=== PATIENT | female | born 1935 | race Hispanic/Latino ===

== ENCOUNTER 2017-02-15 09:22 | Inpatient (IN) | payer MEDICARE, OTHER ==
[2017-02-15 09:33] VITALS: BMI 17.1
[2017-02-15] MEDS ORDERED: LORazepam Half Tablet 0.25 MG PO ONE (09:49)
--- NOTE | 2017-02-15 09:57 | ED PDOC ---
Arrival/HPI - General Chief Complaint: Weakness/Neurological Deficit Time Seen by Provider: 02/15/17 09:27 Historian: Patient, Family - History of Present Illness Narrative History of Present Illness (Text): 02/15/17 09:40 A 81 year old female, whose past medical history includes anxiety, depression, UTI, paroxysymal atrial fibrillation, hypothythriodism, weakness, dizziness, gait abnormality, presents to the emergency department via EMS called by the patient's son for tremors, abdominal pain, constipation, vaginal pain, and hip pain, which began months ago. The patient and son both note that this has been going on for months now and the patient finally became "fed up" with her symptoms and decided she needed to seek medical attention. She admits to being noncompliant with medications and not following up with her primary doctor for months. She also notes that for the past couple of months she has been primary bed ridden due to her current status. The patient denies any fever, nausea, vomiting, chest pain, shortness of breath, or any other complaints at this time. Time/Duration: > month Symptom Onset: Gradual Symptom Course: Unchanged Activities at Onset: Rest Context: Home Past Medical History - Provider Review Nursing Documentation Reviewed: Yes - Infectious Disease Hx of Infectious Diseases: None - Cardiac Hx Hypertension: Yes - Pulmonary Hx Respiratory Disorders: No Hx Pneumonia: Yes - Neurological Hx Dementia: Yes Hx Dizziness: Yes - HEENT Hx HEENT Disorder: Yes (eyeglasses) - Renal Hx Renal Disorder: No - Endocrine/Metabolic Hx Hypothyroidism: Yes - Hematological/Oncological Hx Blood Disorders: No - Integumentary Hx Dermatological Disorder: No - Musculoskeletal/Rheumatological Hx Arthritis: Yes - Gastrointestinal Hx Gastrointestinal Disorders: No - Genitourinary/Gynecological Hx Reproductive Disorders: No - Psychiatric Hx Anxiety: Yes Hx Depression: Yes Hx Substance Use: No - Surgical History Hx Orthopedic Surgery: Yes (left wrist hardware in and out) Other/Comment: ORTHO SURGERY FROM PREVISOU TRIAGE - Anesthesia Hx Anesthesia: Yes Hx Anesthesia Reactions: No Hx Malignant Hyperthermia: No Family/Social History - Physician Review Nursing Documentation Reviewed: Yes Family/Social History: Other (nc) Smoking Status: Never Smoked Hx Alcohol Use: No Hx Substance Use: No Allergies/Home Meds Allergies/Adverse Reactions: Allergies No Known Allergies Allergy (Verified 04/28/16 13:34) Home Medications: Home Meds Medication Instructions Recorded Confirmed No Known Home Med 02/15/17 02/15/17 Review of Systems - Physician Review All systems were reviewed & negative as marked: Yes - Review of Systems Constitutional: absent: Fevers Cardiovascular: absent: Chest Pain Gastrointestinal: Abdominal Pain, Constipation. absent: Nausea, Vomiting Genitourinary Female: Other (vaginal pain ) Neurological: Other (tremors) Physical Exam Vital Signs Reviewed: Yes Vital Signs Temp Pulse Resp BP Pulse Ox 02/15/17 15:18 59 L 18 148/69 100 02/15/17 13:00 57 L 18 152/71 H 100 02/15/17 11:12 60 18 155/79 H 100 02/15/17 09:33 97.7 F 77 18 157/88 H 97 Temperature: Afebrile Blood Pressure: Hypertensive Pulse: Regular Respiratory Rate: Normal Appearance: Positive for: Well-Appearing, Non-Toxic, Comfortable Pain Distress: None Mental Status: Positive for: Alert and Oriented X 3 - Systems Exam Head: Present: Atraumatic, Normocephalic Pupils: Present: PERRL Mouth: Present: Moist Mucous Membranes Neck: Present: Normal Range of Motion Respiratory/Chest: Present: Clear to Auscultation, Good Air Exchange. No: Respiratory Distress, Accessory Muscle Use Cardiovascular: Present: Regular Rate and Rhythm. No: Murmurs Abdomen: Present: Tenderness (diffuse non focal), Normal Bowel Sounds. No: Distention, Peritoneal Signs Neurological: Present: GCS=15, Other (resting tremor right arm; no focal deficits) Skin: Present: Warm, Dry, Normal Color. No: Rashes Psychiatric: Present: Alert, Oriented x 3 Medical Decision Making ED Course and Treatment: Progress Notes: EKG: Ordered, reviewed, and independently interpreted the EKG. Rate : 76 BPM Rhythm : SR Interpretation : 1st Degree AV block. No STEMI. Baseline artifact obscures several leads due to the patients tremor. Comparison : No previous EKG for comparison. 02/15/17 12:30 pt c/o rectal pain. on exam there is impaction with stool- I manually disimpacted and pt reported improvement after. enema given as well. she reported her abdominal pain resolved. she refused CT abd/pelvis and CT head. - Lab Interpretations Microbiology Results: Microbiology Results 02/15/17 11:15 Urine Urine Culture - Final No Growth (<1,000 CFU/ML) Lab Results: 02/15/17 10:30 02/15/17 10:30 Lab Results 02/15/17 11:15: Urine Color Yellow, Urine Appearance Clear, Urine pH 6.5, Ur Specific [place] 1.020, Urine Protein 30 H, Urine Glucose (UA) Negative, Urine Ketones Negative, Urine Blood Small H, Urine Nitrate Negative, Urine Bilirubin Negative, Urine Urobilinogen 0.2, Ur Leukocyte Esterase Trace H, Urine RBC 1 - 3 , Urine WBC 0 - 2, Ur Epithelial Cells 0 - 2, Urine Bacteria Few 02/15/17 10:30: TSH 3rd Generation 124.00 H 02/15/17 10:30: Sodium 141, Chloride 103, Potassium 4.0, Carbon Dioxide 29, Anion Gap 13, BUN 21, Creatinine 0.7, Est GFR ( Amer) > 60, Est GFR (Non- Af Amer) > 60, Random Glucose 86, Calcium 9.9, Total Bilirubin 0.9, AST 52 H, ALT 55, Alkaline Phosphatase 66, Troponin I < 0.01, Total Protein 7.4, Albumin 4.5, Globulin 2.9, Albumin/Globulin Ratio 1.6, Lipase 166 02/15/17 10:30: pO2 49, VBG pH 7.39, VBG pCO2 53.0, VBG HCO3 32.1 H, VBG Total CO2 33.7 H, VBG O2 Sat (Calc) 89.1 H, VBG Base Excess 5.7 H, VBG Potassium 3.9, Sodium 142.0, Chloride 106.0, Glucose 86, Lactate 1.0, FiO2 21.0, Venous Blood Potassium 3.9 02/15/17 10:30: WBC 5.6, RBC 3.91, Hgb 12.1, Hct 35.5 L, MCV 90.8, MCH 30.9, MCHC 34.1, RDW 12.9, Plt Count 192, MPV 9.9, Gran % 68.4 H, Lymph % (Auto) 21.6 L, [place]ake % (Auto) 4.7, Eos % (Auto) 4.9, Baso % (Auto) 0.4, Gran # 3.81, Lymph # 1.2, Leake # 0.3, Eos # 0.3, Baso # 0.02 - RAD Interpretation Radiology Orders: 02/15/17 09:50 CHEST PORTABLE [RAD] Stat - Medication Orders Current Medication Orders: Docusate Sodium (Colace) 100 mg PO BID PEDRO LUIS Last Admin: 02/16/17 10:36 Dose: 100 mg Last Bowel Movement Document 02/16/17 10:36 MAD (Rec: 02/16/17 10:37 [id number]) Last Bowel Movement Last Bowel Movement 02/15/17 Heparin Sodium (Porcine) (Heparin) 5,000 units SC Q12 PEDRO LUIS PRN Reason: Protocol Last Admin: 02/16/17 10:36 Dose: 5,000 units Subcutaneous Administrations Document 02/16/17 10:36 MAD (Rec: 02/16/17 10:36 [id number]) Injection Site MAR Injection Site Right Abdomen Charges for Administration # of Subcutaneous Administrations 1 Sodium Chloride (Sodium Chloride 0.9%) 1,000 mls @ 100 mls/hr IV .Q10H PEDRO LUIS Last Admin: 02/16/17 06:29 Dose: 100 mls/hr eMAR Start Stop Document 02/16/17 06:29 [facility] (Rec: 02/16/17 06:30 [id number] Intravenous Solution Start Date 02/16/17 Start Time 06:29 Levothyroxine Sodium (Synthroid) 100 mcg IVP DAILY PEDRO LUIS Stop: 02/18/17 11:00 Last Admin: 02/16/17 11:13 Dose: 100 mcg IVP Administration Document 02/16/17 11:13 [facility]AD (Rec: 02/16/17 11:[id number] Charges for Administration # of IVP Administrations 1 Lorazepam (Ativan) 1 mg IM Q6H PRN; Protocol PRN Reason: Anxiety Last Admin: 02/16/17 10:37 Dose: 1 mg IM Administration Charges Document 02/16/17 10:37 MAD (Rec: 02/16/17 10:38 [id number]) Injection Site MAR Injection Site Right Abdomen Charges for Administration # of IM Administrations 1 Behavioural Document 02/16/17 10:37 MAD (Rec: 02/16/17 10:38 [id number]) Maintenance Maintenance Dose No Nonmedicinal Nonmedicinal Interventions Redirect Therapeutic Communication Comment Hyperthyroidism Behavior Behavior for Medication: Anxiety Re-Assess: Reassess Psych Meds Document 02/16/17 11:07 MAD (Rec: 10/02/17 11:[id number] Reassess Psych Med Effective Pantoprazole Sodium (Protonix Ec Tab) 40 mg PO 0600 PEDRO LUIS Last Admin: 02/16/17 06:25 Dose: 40 mg Discontinued Medications Heparin Sodium (Porcine) (Heparin) 5,000 units SC STAT STA PRN Reason: Protocol Stop: 02/15/17 16:04 Last Admin: 02/15/17 20:08 Dose: 5,000 units Subcutaneous Administrations Document 02/15/17 20:08 LMN (Rec: 02/15/17 20:08 [id number] Injection Site MAR Injection Site Right Arm Charges for Administration # of Subcutaneous Administrations 1 Levothyroxine Sodium (Synthroid) 200 mcg IVP STAT STA Stop: 02/15/17 19:29 Last Admin: 02/15/17 21:51 Dose: 200 mcg IVP Administration Document 02/15/17 21:51 [facility] (Rec: 02/15/17 21:54 [id number] Charges for Administration # of IVP Administrations 1 Lorazepam (Ativan) 0.25 mg PO ONCE ONE PRN Reason: Protocol Stop: 02/15/17 09:50 Lorazepam (Ativan) 0.25 mg PO ONCE ONE Stop: 02/15/17 10:01 Last Admin: 02/15/17 10:30 Dose: 0.25 mg Pantoprazole Sodium (Protonix Inj) 40 mg IVP DAILY PEDRO LUIS Sodium Phosphate (Fleet Enema) 135 ml RC STAT STA Stop: 02/15/17 12:33 Last Admin: 02/15/17 13:03 Dose: 135 ml - Scribe Statement The provider has reviewed the documentation as recorded by the Simon Hlil Provider Scribe Attestation: All medical record entries made by the Scribnoa were at my direction and personally dictated by me. I have reviewed the chart and agree that the record accurately reflects my personal performance of the history, physical exam, medical decision making, and the department course for this patient. I have also personally directed, reviewed, and agree with the discharge instructions and disposition. Disposition/Present on Arrival - Present on Arrival Any Indicators Present on Arrival: No History of DVT/PE: No History of Uncontrolled Diabetes: No Urinary Catheter: No History of Decub. Ulcer: No History Surgical Site Infection Following: None - Disposition Have Diagnosis and Disposition been Completed?: Yes Diagnosis: Hypothyroidism Disposition: HOSPITALIZED Disposition Time: 14:06 Patient Problems: Current Active Problems Problem Status Onset Hypothyroidism Acute Condition: STABLE
[2017-02-15] MEDS: Sodium Chloride 0.9% 1,000 ML IV SCH ×2 (10:30→22:15)
[2017-02-15 10:56] LABS: VENOUS BLOOD GAS BASE EXCESS 5.7 mmol/L (0.0-2.0); VENOUS BLOOD PH 7.39 (7.32-7.43)
[2017-02-15 11:04] LABS: BASO # 0.02 K/mm3 (0.0-2.0); BASO % 0.4 % (0.0-3.0); EOS # 0.3 (0.0-0.7); EOS % 4.9 % (1.5-5.0); GRAN # 3.81 (1.4-6.5); GRAN % 68.4 % (50.0-68.0); HEMATOCRIT 35.5 % (36.0-48.0); LYMPH # 1.2 (1.2-3.4); LYMPH % 21.6 % (22.0-35.0); MEAN CELL VOLUME 90.8 fl (80.0-105.0); MEAN CORPUSCULAR HEMOGLOBIN 30.9 pg (25.0-35.0); MEAN CORPUSCULAR HGB CONC 34.1 g/dl (31.0-37.0); MEAN PLATELET VOLUME 9.9 fl (7.0-11.0); MONO # 0.3 (0.1-0.6); MONO % 4.7 % (1.0-6.0); RED CELL DISTRIBUTION WIDTH 12.9 % (11.5-14.5); WHITE BLOOD COUNT 5.6 10^3/ul (4.5-11.0)
[2017-02-15 11:06] LABS: ALB/GLOB RATIO 1.6 (1.1-1.8); ALKALINE PHOSPHATASE 66 U/L (38-126); ALT/SGPT 55 U/L (7-56); AST/SGOT 52 U/L (14-36); BILIRUBIN,TOTAL 0.9 mg/dL (0.2-1.3); BLOOD UREA NITROGEN 21 mg/dL (7-21); CALCIUM 9.9 mg/dL (8.4-10.5); CARBON DIOXIDE 29 mmol/L (21-33); CHLORIDE 103 mmol/L (98-107); GFR AFRICAN-AMERICAN > 60; GLUCOSE,RANDOM 86 mg/dL (70-110); LIPASE 166 U/L (23-300); SODIUM 141 mmol/L (132-148); TOTAL PROTEIN 7.4 g/dL (5.8-8.3)
[2017-02-15 11:27] LABS: TROPONIN I < 0.01 ng/mL
[2017-02-15 11:34] LABS: PH,URINE 6.5 (4.7-8.0); URINE BILIRUBIN NEGATIVE (NEGATIVE); URINE BLOOD SMALL (NEGATIVE); URINE GLUCOSE (UA) NEGATIVE (NEGATIVE); URINE KETONE NEGATIVE (NEGATIVE); URINE LEUKOCYTE ESTERASE TRACE Leu/uL (NEGATIVE); URINE PROTEIN 30 mg/dL (<30 mg/dL); URINE UROBILINOGEN 0.2 E.U./dL (<1 E.U./dL)
[2017-02-15 11:35] LABS: URINE APPEARANCE CLEAR (CLEAR); URINE COLOR YELLOW (YELLOW)
[2017-02-15 11:54] LABS: URINE BACTERIA FEW (NEG); URINE EPITHELIAL CELLS 0 - 2 /hpf (0-5); URINE WBC 0 - 2 /hpf (0-6)
[2017-02-15] MEDS ORDERED: Iohexol 350 MG/100 ML VIAL ONE (12:00)
--- NOTE | 2017-02-15 15:02 | CP.PCM.HP ---
<TARA GO - Last Filed: 02/15/17 15:54> History of Present Illness - History of Present Illness History of Present Illness: CC: Rectal pain and weakness HPI: 81 yo female with PMHX of hypothyroidism and tremor presents to [facility] [place] for 3- 4 day history of rectal pain and 2 weak history of weakness. Pt states that rectal pain is constant and associated with constipation during the same time period. Pt cannot remember the last BM. Pt denies noticing any blood when wiping , nor has she noticed melena or hematochezia. Pt states that the 2 week history of weakness and fatigue was of insidious onset. Pt states that she normally takes Synthroid, but stopped taking it about 6 months ago. Pt states she does not know why she stopped taking her medications. Pt cannot identify any aggravating or alleviating factors. Pt also complains of sores on her buttocks and tight feet in the mornings that is relieved throughout the day. Pt states she is able ambulate at home with a walker on her own. However, she has stays in bed most of the time because shes says there is nothing else to do. Pt also has essential tremor, present for many years. She states that she was worked up for Parkinson's and tests were negative. Pt denies CP, SOB, n/v/d, dizziness, LINK , dysuria. PMHx: Hypothyroidism, Essential Tremor Surgery: L radial repair FHx: HTN, TN (maternal and paternal) All: NKDA SH: Denied EtOH, tobacco, or illicit drug use; Lives at home with son Medications: Synthroid 88 mcg daily (not taken for at least 6 months) PMD: Ramila Present on Admission - Present on Admission Any Indicators Present on Admission: No Review of Systems - Review of Systems All systems: reviewed and no additional remarkable complaints except (what is stated in HPI.) Past Patient History - Infectious Disease Hx of Infectious Diseases: None - Past Social History Smoking Status: Never Smoked - CARDIAC Hx Hypertension: Yes - PULMONARY Hx Respiratory Disorders: No Hx Pneumonia: Yes - NEUROLOGICAL Hx Dementia: Yes Hx Dizziness: Yes - HEENT Hx HEENT Problems: Yes (eyeglasses) - RENAL Hx Chronic Kidney Disease: No - ENDOCRINE/METABOLIC Hx Hypothyroidism: Yes - HEMATOLOGICAL/ONCOLOGICAL Hx Blood Disorders: No - INTEGUMENTARY Hx Dermatological Problems: No - MUSCULOSKELETAL/RHEUMATOLOGICAL Hx Arthritis: Yes - GASTROINTESTINAL Hx Gastrointestinal Disorders: No - GENITOURINARY/GYNECOLOGICAL Hx Reproductive Disorders: No - PSYCHIATRIC Hx Anxiety: Yes Hx Depression: Yes Hx Substance Use: No - SURGICAL HISTORY Hx Orthopedic Surgery: Yes (left wrist hardware in and out) Other/Comment: ORTHO SURGERY FROM PREVISOU TRIAGE - ANESTHESIA Hx Anesthesia: Yes Hx Anesthesia Reactions: No Hx Malignant Hyperthermia: No Meds Allergies/Adverse Reactions: Allergies Allergy/AdvReac Type Severity Reaction Status Date / Time No Known Allergies Allergy Verified 04/28/16 13:34 Physical Exam - Constitutional Appears: No Acute Distress, Older Than Stated Age, Cachectic - Head Exam Head Exam: ATRAUMATIC, NORMOCEPHALIC - Eye Exam Eye Exam: EOMI, PERRL - ENT Exam ENT Exam: Mucous Membranes Dry - Neck Exam Neck exam: Positive for: Full Rom. Negative for: Lymphadenopathy, Tenderness, Thyromegaly - Respiratory Exam Respiratory Exam: Clear to Auscultation Bilateral. absent: Rales, Rhonchi, Wheezes - Cardiovascular Exam Cardiovascular Exam: RRR, +S1, +S2. absent: Gallop, Rubs, Systolic Murmur - GI/Abdominal Exam GI & Abdominal Exam: Firm, Normal Bowel Sounds, Soft. absent: Distended, Guarding, Organomegaly, Rebound, Tenderness - Rectal Exam Rectal Exam: Fecal Impaction - Extremities Exam Extremities exam: Negative for: pedal edema, tenderness Additional comments: crepitis b/l knees, decreased sensation b/l toes, decubitus ulcer noted b/l buttocks - Back Exam Back exam: NORMAL INSPECTION - Neurological Exam Neurological exam: Alert, Oriented x3 - Psychiatric Exam Psychiatric exam: Normal Affect, Normal Mood - Skin Skin Exam: Dry, Intact, Normal Color Results - Vital Signs Recent Vital Signs: Last Vital Signs Temp 97.7 F 02/15/17 09:33 Pulse 57 L 02/15/17 13:00 Resp 18 02/15/17 13:00 BP 152/71 H 02/15/17 13:00 Pulse Ox 100 02/15/17 13:00 - Labs Result Diagrams: 02/15/17 10:30 02/15/17 10:30 Assessment & Plan - Assessment and Plan (Free Text) Assessment: 81 yo female with past medical history of hypothyroidism will be admitted for evaluation and treatment of severe hypothyroidism and abdominal pain/ constipation. Plan: 1. Abdominal pain/constipation - Admitted as inpatient to med/surg - Pt currently refusing CT scan Consider abdominal x-ray if pt continues to decline CT - Received enema and manual disimpaction in ED, pt clinically improved - Continue to monitor - C/w IVF for dehydration - Electrolytes, Lipase, LFT, and troponin WNL 2. Severe Hypothyroidism - TSH 125 - F/u repeat TSH and T4/T3 - Endocrinology consulted F/u recommendations for synthroid 3. Decubitus Ulcer - Wound care consulted - Turn patient q2h 4. Essential Tremor - Avoid use of propranolol at this time due to risk of bradycardia GI/DVT PPx - Protonix - PEDRO LUIS Pt was seen and discussed in detail with Dr. Mei. Rk Go, PGY1 <Miranda Mei - Last Filed: 02/15/17 17:05> Results - Vital Signs Recent Vital Signs: Last Vital Signs Temp 97.7 F 02/15/17 09:33 Pulse 59 L 02/15/17 15:18 Resp 18 02/15/17 15:18 BP 148/69 02/15/17 15:18 Pulse Ox 100 02/15/17 15:18 - Labs Result Diagrams: 02/15/17 10:30 02/15/17 10:30 Labs: Laboratory Results - last 24 hr 02/15/17 02/15/17 14:32 16:30 Total Creatine Kinase 173 Thyroxine (T4) 2.1 L Total T3 0.40 L Attending/Attestation - Attestation I have personally seen and examined this patient.: Yes I have fully participated in the care of the patient.: Yes I have reviewed all pertinent clinical information: Yes Notes (Text): 02/15/17 16:58 81 year old female with past medical history of hypothyroidism who presents with complaint of generalized weakness and fatigue. She was found to have significantly elevated TSH level of 125. Admits to medication noncompliance for past several weeks/months. Will repeat TSH level for confirmation. May need iv synthroid. Endocrinology evaluation is requested (message left with service). PT evaluation will also be requested for generalized weakness in addition to neonatal social worker evaluation. She was also complaining of lower abdominal / rectal pain which improved after receiving enema and manual disimpaction is ER. She refused CT abd/pelvis imaging. Will monitor clinically. Consider abdominal xray if symptoms recurrent and she refused CT. Will add colace prn. Continue with diet as tolerated. Continue with wound care and frequent turns for decubitus ulcer. Miranda Mei MD Hospitalist.
[2017-02-15 15:22] LABS: T4 2.1 ug/dL (5.5-11.0)
[2017-02-15 15:36] LABS: T3 0.4 ng/mL (0.97-1.69)
[2017-02-15 16:58] LABS: FREE T4 0.15 ng/dL (0.78-2.19)
--- NOTE | 2017-02-15 17:39 | RAD ---
HISTORY: weak COMPARISON: 10/20/2015 FINDINGS: LUNGS: No active pulmonary disease. PLEURA: No significant pleural effusion identified, no pneumothorax apparent. CARDIOVASCULAR: Normal. OSSEOUS STRUCTURES: No significant abnormalities. VISUALIZED UPPER ABDOMEN: Normal. OTHER FINDINGS: None. IMPRESSION: No active disease.
[2017-02-15] MEDS ORDERED: Levothyroxine 100 mcg (0.1 mg) Inj IVP STA (19:28)
--- NOTE | 2017-02-16 06:16 | CON ---
ENDOCRINOLOGY CONSULTATION DATE: In the room 577. HISTORY OF PRESENT ILLNESS: This is an 81-year-old female with known history of longstanding hypothyroidism and apparently stopped her thyroid medications for about 6 months or longer and presented here with diffuse abdominal pain and severe obstipation and supervening generalized body weakness with progressive bouts of dizziness and lightheadedness and is now being referred for evaluation and management of marked hypothyroidism. PAST MEDICAL HISTORY: As mentioned above history of hypothyroidism, previously on levothyroxine given as 88 mcg daily, history of hypertension and dyslipidemia, history of prior left wrist fracture and underwent open reduction and internal fixation of the left radial bone as noted, history of generalized anxiety and depression, early dementia and frequent lapses of forgetfulness as noted. FAMILY HISTORY: Positive for hypertension and heart disease. SOCIAL HISTORY: The patient has a supportive family. No known substance use; however, she lives alone at this time. REVIEW OF SYSTEMS: As mentioned above, admits to generalized body weakness with easy fatigability and tiredness and marked hypersomnolence and lethargy especially in the last two weeks or so prior to admission. Also admits to progressive bouts of dizziness and lightheadedness with near syncopal episodes worse in the last week or so prior to admission. Admits to severe bilateral and bifrontal headaches and visual blurring as noted. Also admits to precordial chest pain especially on exertion, with progressive shortness of breath also on exertion. Admits to diffuse abdominal pain especially in the lower pelvic area with severe constipation and obstipation at this time. Also admits to nausea, dyspepsia and variable and suboptimal oral intake. Also, admits to lower extremity paresthesias especially nocturnally. Moreover, admits to marked cold intolerance at this time. Moreover, continues to have essential tremors as noted. Also, admits to cutaneous source in the gluteal [place] bilaterally worse in the last week or so prior to admission. PHYSICAL EXAMINATION GENERAL: This is average built female in no apparent distress. VITAL SIGNS: Blood pressure of 130/80, pulse of 50 beats per minute regular, temperature 97 and respirations 20. Height is 5 feet 2 inches and weight is 95 pounds. HEENT: Head normocephalic. Eyes anicteric with pink conjunctivae. Funduscopy not possible at this time. There is marked periorbital and facial swelling and edema as noted. NECK: Supple. Thyroid gland shows mild diffuse thyromegaly with no possible thyroid nodules noted. No cervical adenopathy noted. HEART: Adynamic precordium. S1 and S2 is slow and regular with heart rate of 50 beats per minute. LUNGS: Clear to auscultation. ABDOMEN: Flat and soft with positive bowel sounds. EXTREMITIES: There is +1 bipedal edema. Pulses are +2 bilaterally. LABORATORY DATA: Chemistry showed BUN of 21, sodium 141, potassium 4.0, chloride 103, CO2 of 29, glucose 86 and creatinine 0.7. Her total T4 or thyroxine is 2.1 mcg per dL with TSH of 124.00 and a repeat level of 120.00, as a double confirmation tonight. Her free T4 is 0.15 with a total T3 of 0.40. ASSESSMENT: This is an 81-year-old female with marked hypothyroidism both clinically and by chemically, presenting here with near myxedema and associated sinus bradycardia with near syncopal episodes and marked dizziness and lightheadedness prompted this current admission. She admits to inadvertent drug omission of her levothyroxine medications for over 6 months or so prior to admission as noted. She also has early dementia with frequent lapses of forgetfulness and underlying anxiety and depression, which may have contributed to the aforementioned condition. PLAN OF MANAGEMENT: We will give the patient a stat dose tonight of parenteral levothyroxine given as 200 mcg IV push as one dose tonight as ordered. Then tomorrow morning, we will start her on also parenteral levothyroxine given as 100 mcg IV push once daily for the next 3 days as ordered. We will obtain a total and free T4 and TSH also tomorrow morning and we will obtain serial chemistries and supplement accordingly as needed. We will also obtain a thyroid peroxidase and thyroglobulin antibody, which will confirm underlying thyroid autoimmunity. A serum cortisol level will also be obtained as baseline hormonal level. As her thyroxine levels improve, then we will start her on oral levothyroxine medications. The reason we are giving levothyroxine parenterally or by IV push is because of the marked edema in the gastric mucosa, which will not absorb the oral levothyroxine medication as given. So, it is more efficacious and also to any hemodynamic compromise, thus we give the levothyroxine parenterally tonight and for the next 3 days as ordered. We will follow and advise accordingly. Thank you. Pauly Contreras MD
[2017-02-16] MEDS: Pantoprazole 40 mg EC Tab PO SCH (06:25)
[2017-02-16] MEDS: Sodium Chloride 0.9% 1,000 ML IV SCH (06:29)
[2017-02-16 07:27] LABS: HEMATOCRIT 29.9 % (36.0-48.0); MEAN CELL VOLUME 90.6 fl (80.0-105.0); MEAN CORPUSCULAR HEMOGLOBIN 30.9 pg (25.0-35.0); MEAN CORPUSCULAR HGB CONC 34.1 g/dl (31.0-37.0); MEAN PLATELET VOLUME 9.2 fl (7.0-11.0); RED CELL DISTRIBUTION WIDTH 12.7 % (11.5-14.5); WHITE BLOOD COUNT 4.7 10^3/ul (4.5-11.0)
[2017-02-16 07:40] LABS: ALB/GLOB RATIO 1.5 (1.1-1.8); ALKALINE PHOSPHATASE 53 U/L (38-126); ALT/SGPT 42 U/L (7-56); AST/SGOT 52 U/L (14-36); BILIRUBIN,TOTAL 0.7 mg/dL (0.2-1.3); BLOOD UREA NITROGEN 17 mg/dL (7-21); CALCIUM 9.1 mg/dL (8.4-10.5); CARBON DIOXIDE 29 mmol/L (21-33); CHLORIDE 105 mmol/L (98-107); CHOLESTEROL 306 mg/dL (130-200); GFR AFRICAN-AMERICAN > 60; GLUCOSE,RANDOM 80 mg/dL (70-110); POTASSIUM 3.7 mmol/L (3.6-5.0); SODIUM 140 mmol/L (132-148); TOTAL PROTEIN 6.1 g/dL (5.8-8.3)
--- NOTE | 2017-02-16 07:44 | CARD ---
APPROVED REPORT EKG Measurement Heart [id number] [id number] <Conclusion> Sinus rhythm with 1st degree AV block Limb leads obscured by low voltage and electrical artifact Suggest repeat ECG
[2017-02-16 07:53] LABS: T4 4.8 ug/dL (5.5-11.0)
[2017-02-16 07:54] LABS: FREE T4 0.41 ng/dL (0.78-2.19)
[2017-02-16] MEDS: Levothyroxine 100 mcg (0.1 mg) Inj IVP SCH (11:13)
[2017-02-16 11:30] LABS: BASO # 0.04 K/mm3 (0.0-2.0); BASO % 0.8 % (0.0-3.0); EOS # 0.2 (0.0-0.7); GRAN # 3.61 (1.4-6.5); GRAN % 68.2 % (50.0-68.0); HEMATOCRIT 30.7 % (36.0-48.0); LYMPH # 1.2 (1.2-3.4); LYMPH % 22.5 % (22.0-35.0); MEAN CELL VOLUME 90.3 fl (80.0-105.0); MEAN CORPUSCULAR HEMOGLOBIN 30.9 pg (25.0-35.0); MEAN CORPUSCULAR HGB CONC 34.2 g/dl (31.0-37.0); MEAN PLATELET VOLUME 9.3 fl (7.0-11.0); MONO # 0.2 (0.1-0.6); MONO % 4.5 % (1.0-6.0); RED CELL DISTRIBUTION WIDTH 12.8 % (11.5-14.5); WHITE BLOOD COUNT 5.3 10^3/ul (4.5-11.0)
[2017-02-16 12:29] LABS: CORTISOL AM 14.4 ug/dL (4.46-22.7)
--- NOTE | 2017-02-16 14:57 | PN ---
SUBJECTIVE: An 81-year-old white female with a history of depression, anxiety disorder for many, many years. The patient refused to take a medication at home. She also has history of hypothyroidism, has not taken a thyroid medication in many months. The patient admitted in the hospital with a presyncopal episode, bradycardia, and a TSH of over 120. The patient was seen in consultation by Dr. Pauly Contreras. She started her on IV Synthroid and to continue. She also was found to have a drop in her hemoglobin from 12 to 10, this should be repeated. The patient had some defecation episodes at home, but there has been no evidence of bleeding at home. PHYSICAL EXAMINATION: VITAL SIGNS: Showed a blood pressure of 103/61, her heart rate is 53 now. LABORATORY DATA: Her hemoglobin is 10.2, repeat is pending. BUN and creatinine are stable. Sugar is stable. IMPRESSION: Severe paranoia, anxiety disorder, depression, hypothyroidism, and presyncope. Mario Mcgrath MD
--- NOTE | 2017-02-16 15:52 | PN ---
ENDOCRINOLOGY FOLLOWUP NOTE DATE: LOCATION: Room 577. SUBJECTIVE: This is an 81-year-old female presenting here with marked constitutional symptoms of increasing generalized weakness with hypersomnolence and lethargy and supervening severe constipation and obstipation with diffuse abdominal pain and has been evaluated to have marked hypothyroidism as noted. She received parenteral levothyroxine therapy as given last night as noted. Her repeat chemistry showed a BUN of 17, sodium 140, potassium 3.7, chloride 105, CO2 29, glucose 80 and creatinine 0.7. Her cholesterol level is 306 as expected from the marked hypothyroidism with impaired clearance of the cholesterol and LDL cholesterol as noted. Her repeat thyroid study showed a T4 of 4.8 mcg/dL with a free T4 of 0.41 and a TSH of 112.00. Her serum cortisol level is 14.4 as noted. ASSESSMENT: This is an 81-year-old female with marked hypothyroidism both historically, clinically and biochemically related to drug omission of her recommend medications and clearly associated with underlying autoimmune thyroiditis. 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 PLAN AND MANAGEMENT: We will continue the parenteral levothyroxine given as 100 mcg IV push daily starting today as ordered. She received a stat dose of 200 mcg last night as noted. We will continue the levothyroxine given parenterally because of the marked gastric mucosal edema hindering and impairing the absorption of any oral levothyroxine medications at this time. We will obtain serial chemistries and supplement accordingly as needed. We will also obtain serial thyroid studies and titrate her dose accordingly. We will follow. Pauly Contreras MD
[2017-02-17] MEDS: Sodium Chloride 0.9% 1,000 ML IV SCH ×2 (05:46→23:03)
[2017-02-17 07:19] LABS: HEMATOCRIT 25.6 % (36.0-48.0); MEAN CELL VOLUME 90.5 fl (80.0-105.0); MEAN CORPUSCULAR HEMOGLOBIN 30.7 pg (25.0-35.0); MEAN PLATELET VOLUME 9.4 fl (7.0-11.0); RED CELL DISTRIBUTION WIDTH 12.9 % (11.5-14.5); WHITE BLOOD COUNT 7.7 10^3/ul (4.5-11.0)
[2017-02-17 08:45] LABS: ALB/GLOB RATIO 1.5 (1.1-1.8); ALKALINE PHOSPHATASE 46 U/L (38-126); ALT/SGPT 49 U/L (7-56); AST/SGOT 42 U/L (14-36); BILIRUBIN,TOTAL 0.4 mg/dL (0.2-1.3); BLOOD UREA NITROGEN 16 mg/dL (7-21); CALCIUM 8.8 mg/dL (8.4-10.5); CARBON DIOXIDE 26 mmol/L (21-33); CHLORIDE 107 mmol/L (98-107); GFR AFRICAN-AMERICAN > 60; GLUCOSE,RANDOM 80 mg/dL (70-110); POTASSIUM 3.4 mmol/L (3.6-5.0); SODIUM 140 mmol/L (132-148); TOTAL PROTEIN 5.2 g/dL (5.8-8.3)
[2017-02-17] MEDS ORDERED: Potassium Chloride 20 mEq ER Tab PO ONE (09:56)
[2017-02-17] MEDS: Levothyroxine 100 mcg (0.1 mg) Inj IVP SCH (10:07)
[2017-02-17 10:46] LABS: HEMATOCRIT 29.2 % (36.0-48.0)
[2017-02-17] MEDS ORDERED: Magnesium Sulfate 1 gm in D5W 1 GM/100 ML BAG IVPB ONE (10:50)
--- NOTE | 2017-02-17 17:02 | PN ---
DATE: ENDOCRINOLOGY FOLLOWUP NOTE LOCATION: Room 577. SUBJECTIVE: This is an 81-year-old female with marked hypothyroidism, near myxedema currently improving slowly both clinically and metabolically as noted there of. She has received IV levothyroxine initially as 200 mcg and followed now with 100 mcg once daily in the morning as ordered. Her latest chemistries showed BUN of 16, sodium 140, potassium 3.4, chloride 107, CO2 26, glucose 80, and creatinine 0.8. Her latest thyroid studies showed T4 of 4.8 mcg/dL with a TSH of 112 milliunits per mL as noted. Her free T4 is 0.41 and the serum cortisol of 14.4 mcg as noted. So, at this time, we will continue the levothyroxine given parenterally as ordered and we will obtain repeat T4 and TSH tomorrow morning as ordered. We will continue the potassium and magnesium supplementation as ordered. We will follow and advise accordingly. Pauly Contreras MD
[2017-02-18] MEDS: Pantoprazole 40 mg EC Tab PO SCH (06:18)
[2017-02-18 07:29] LABS: MEAN CELL VOLUME 90.9 fl (80.0-105.0); MEAN CORPUSCULAR HEMOGLOBIN 31.1 pg (25.0-35.0); MEAN CORPUSCULAR HGB CONC 34.2 g/dl (31.0-37.0); MEAN PLATELET VOLUME 9.3 fl (7.0-11.0); RED CELL DISTRIBUTION WIDTH 13.2 % (11.5-14.5); WHITE BLOOD COUNT 7.7 10^3/ul (4.5-11.0)
[2017-02-18 07:56] LABS: FREE T4 0.37 ng/dL (0.78-2.19)
[2017-02-18 08:01] LABS: ALB/GLOB RATIO 1.3 (1.1-1.8); ALKALINE PHOSPHATASE 48 U/L (38-126); ALT/SGPT 46 U/L (7-56); AST/SGOT 42 U/L (14-36); BILIRUBIN,TOTAL 0.4 mg/dL (0.2-1.3); BLOOD UREA NITROGEN 15 mg/dL (7-21); CALCIUM 8.5 mg/dL (8.4-10.5); CARBON DIOXIDE 28 mmol/L (21-33); CHLORIDE 108 mmol/L (98-107); GFR AFRICAN-AMERICAN > 60; GLUCOSE,RANDOM 76 mg/dL (70-110); MAGNESIUM 1.8 mg/dL (1.7-2.2); POTASSIUM 3.8 mmol/L (3.6-5.0); SODIUM 140 mmol/L (132-148); TOTAL PROTEIN 5.4 g/dL (5.8-8.3)
--- NOTE | 2017-02-18 08:19 | PN ---
DATE: 02/17/2017 SUBJECTIVE: An 81-year-old white female admitted to the hospital with tremor, confusion, falling, loss of balance, severe hypothyroidism,TSH of over 112, history of a chronic urinary tract infection, history of right upper extremity tremor, and shaking, history of anxiety disorder, more paranoia, change in mental status. The patient is more sedate and sleeping today. PHYSICAL EXAMINATION: VITAL SIGNS: Stable. She is afebrile. LABORATORY DATA: Hemoglobin is 9.8, had recently dropped from 12 on admission to 10.4, and now the hemoglobin has dropped to 9.8 that stabilized after being as low as 8.7. ASSESSMENT AND PLAN: The patient will be evaluated by Dr. Parker for psychiatry. Plan is to continue current medications and reestablishment of her thyroid medication and possible discharge to subacute rehab. Mario Mcgrath MD
[2017-02-18] MEDS: Levothyroxine 100 mcg (0.1 mg) Inj IVP SCH (09:53)
[2017-02-18] MEDS: Sodium Chloride 0.9% 1,000 ML IV SCH ×2 (09:55→17:24)
--- NOTE | 2017-02-18 13:16 | CON ---
HISTORY OF PRESENT ILLNESS: The patient is an 81-year-old female, multiple medical problems including a urinary tract infection, paroxysmal atrial fibrillation, hypothyroidism, weakness, dizziness, gait abnormalities. The patient also has history of mood disorder as well as anxiety disorder, history of 3 hospitalizations into the psychiatric inpatient unit, most recent was a year ago. This time, the patient was admitted on the medical floor for evaluation of gait instability as well as for tremors, abdominal pain, constipation and pain in multiple areas of her body. Psych consult was called for evaluation of mood symptoms, anxiety symptoms and the patient has history of mental illness. The patient was seen and examined. This policy writer typist very familiar with the patient as well as with her son, Yasir, who is next to the patient. The patient is willing to be interviewed in front of the son. The patient presented to be very anxious, has resting tremor in her right upper extremity. The patient is very thin built, seems to have lost lot of weight. The patient also has some muscle atrophy in the lower extremities. The patient reported that she was not taking her medications for months. She did not follow up with the primary care physician as well as psychiatrist. The patient presented very weak, anxious as well as worst compared with the previous admission. As per the patient and son, the patient's daughter, Brenda, is power of contract attorney for the patient. Brenda needs to be contacted at present moment. This policy writer typist reviewed previous notes from the psychiatric admission. The patient is very strong will lady and refused all of the services at home. One admission the patient was transferred to [facility] for subacute rehab. The patient does not have history of hearing voices, does not have history of suicidal attempts. PHYSICAL EXAMINATION: VITAL SIGNS: Reviewed. Temperature is 97.3, pulse is 58, blood pressure 100/57, respiration 16, oxygen saturation is 97. MEDICATIONS: Reviewed. The patient is on Colace, heparin, Synthroid, Ativan, Protonix and sodium chloride. LABORATORY DATA: Labs reviewed. Hemoglobin and hematocrit of 8.9 and 26.0. Chemistry reviewed. TSH 112 which is very much elevated, free T4 of 0.37 which is low. AST is 52. Urinalysis showed leukocyte esterase small, blood small. Immunology: Thyroglobulin antibody is 2 which is high. As per previous notes, the patient was on Remeron at the nighttime and Klonopin for anxiety. As per physical therapy, subacute rehab recommended for the patient. MENTAL STATUS EXAMINATION: The patient presented to be alert. The patient oriented to self as well as place. The patient does not remember this policy writer typist. Intermittent eye contact. Appears to be very anxious. Very thin built. Marginal personal hygiene. The patient was under productive, low volume. Mood described "I'm anxious." Affect was flat. Thought process seems to be goal directed. Thought content, the patient denied visual, auditory or tactile hallucinations. Denied paranoid ideation. The patient denied thoughts of harming herself or others. Denied intents or plan. Insight and judgment are very limited. Impulses are well controlled so far. IMPRESSION: As per history, the patient has mood disorder as well as anxiety disorder, rule out mood disorder, anxiety disorder due to general medical condition. The patient also has generalized anxiety disorder. PLAN: Case management involved. The patient has POA, the patient's daughter Brenda should be contacted. The patient denied any physical or emotional abuse, but obviously, the patient was not taking medications for months and did not see the doctors for months too and neglect should be ruled out. On top of that, the patient presented to be very thin built. As per physical therapy, the patient needs to go to subacute rehab. The patient denied any thoughts of harming herself or others. Denied intents or plan, but at the same time, I think the patient needs to have therapy as well as possible placement issues, but it has to be discussed with power of contract attorney because the patient came to the hospital in bad shape and she was not taking medication or did not follow up with outpatient psychiatrist or primary care physician and she did not eat well. Case was discussed with the bridge ironworker, Flores Davidson, as well as assistant case manager, Gosia. This policy writer typist will start very small dose of benzodiazepines to help the patient's anxiety. Neurology consultation is recommended because the patient has resting tremor in her right upper extremity. Consider endocrinology consultation as well. We will follow up and advise accordingly. Should you have any questions give me a call back. Thank you very much for letting me participate in the care of your patient. Elena Lemus MD
--- NOTE | 2017-02-18 15:22 | PN ---
ENDOCRINOLOGY FOLLOWUP NOTE DATE: 02/18/2017 LOCATION: Seen in room #577. This is an 81-year-old female presenting here with marked constitutional symptom and decreased abdominal pain related to obstipation and has been evaluated to have marked hypothyroidism and myxoedema both historically, clinically, and by chemically as noted. She apparently admits to drug omission with frequent lapses of memory regarding the need for daily intake of her levothyroxine medications as noted. Her latest chemistry showed a BUN of 15, sodium 140, potassium 3.8, chloride 108, CO2 28, glucose 76, and creatinine 0.9. Her repeat thyroid studies showed free T4 of 0.37 and TSH of 102.00, which is a remarkable improvement from the initial level of 124.00 milliunits per mL as noted. She clearly has underlying autoimmune thyroiditis with imperative need for daily intake of her levothyroxine dose regimen as noted. We actually have completed today the parental levothyroxine given as 100 mcg daily by IV push as ordered. We will start tomorrow morning on levothyroxine, given up to 125 mcg p.o. before meals breakfast daily as ordered. We will obtain serial chemistries and supplement accordingly as needed. We will also continue the IV hydration as given and ordered. We will also obtain serial thyroid studies and titrate her levothyroxine dose regimen accordingly. We will follow and advise accordingly. Pauly Contreras MD
--- NOTE | 2017-02-18 19:02 | PN ---
SUBJECTIVE: An 81-year-old white female, complaining of tremor, change in mental status, confusion, dry skin, found to be in severe hypothyroidism secondary to not taking her medication, TSH over 112. The patient also has chronic history of anxiety and depression, being seen by Dr. Parker, being treated with antianxiety medications and Synthroid. Dr. Pauly Contreras also saw the patient and has said that she needs one more day of IV Synthroid before she goes on p.o. The patient is doing physical therapy and occupational therapy evaluated for subacute. PHYSICAL EXAMINATION: Unchanged. Mario Mcgrath MD
[2017-02-19] MEDS: Pantoprazole 40 mg EC Tab PO SCH (05:44)
[2017-02-19] MEDS: Sodium Chloride 0.9% 1,000 ML IV SCH (06:47)
[2017-02-19 07:09] LABS: HEMATOCRIT 24.7 % (36.0-48.0); MEAN CELL VOLUME 91.5 fl (80.0-105.0); MEAN CORPUSCULAR HEMOGLOBIN 31.1 pg (25.0-35.0); MEAN PLATELET VOLUME 9.5 fl (7.0-11.0); RED CELL DISTRIBUTION WIDTH 13.3 % (11.5-14.5); WHITE BLOOD COUNT 4.8 10^3/ul (4.5-11.0)
[2017-02-19] MEDS ORDERED: Levothyroxine 125 MCG TAB PO SCH (07:30)
[2017-02-19 07:31] LABS: ALB/GLOB RATIO 1.3 (1.1-1.8); ALKALINE PHOSPHATASE 49 U/L (38-126); ALT/SGPT 49 U/L (7-56); AST/SGOT 48 U/L (14-36); BILIRUBIN,TOTAL 0.3 mg/dL (0.2-1.3); BLOOD UREA NITROGEN 15 mg/dL (7-21); CALCIUM 8.6 mg/dL (8.4-10.5); CARBON DIOXIDE 26 mmol/L (21-33); CHLORIDE 109 mmol/L (98-107); GFR AFRICAN-AMERICAN > 60; GLUCOSE,RANDOM 78 mg/dL (70-110); POTASSIUM 3.6 mmol/L (3.6-5.0); SODIUM 141 mmol/L (132-148); TOTAL PROTEIN 5.2 g/dL (5.8-8.3)
[2017-02-19 07:36] LABS: FREE T4 0.42 ng/dL (0.78-2.19); T4 4.4 ug/dL (5.5-11.0)
[2017-02-19 08:48] VITALS: BP 104/59; PULSE 59; RESP 16; TEMP 97.1; O2SAT 95
--- NOTE | 2017-02-19 13:53 | PN ---
DATE: ENDOCRINOLOGY FOLLOWUP NOTE LOCATION: Room 577. 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 She received parenteral levothyroxine for 4 days as noted. The latest chemistry showed a BUN of 15, sodium 141, potassium 3.6, chloride 109, CO2 26, glucose 78 and creatinine 0.7. Repeat thyroid studies today have remarkably improved with a TSH of 102.00 and a T4 of 4.4 and a free T4 of 0.42. So, at this time, we will continue the oral levothyroxine given as 125 mcg daily before breakfast as ordered. She received levothyroxine up to 100 mcg IV push for 3 days in a row as ordered. We will obtain serial chemistries and supplement accordingly as needed. We will follow with you. Pauly Contreras MD
--- NOTE | 2017-02-19 14:09 | PN ---
SUBJECTIVE: An 81-year-old white female, hypothyroidism, anxiety disorder, right upper extremity tremor, severe leg discomfort and pain. The patient was seen in consultation by Dr. Parker and also by physical therapy and occupational therapy. She has had a drop in her hemoglobin to 8.4. We are checking her stool for occult blood. She is doing physical therapy and occupation therapy. She is taking her thyroid medication and we will follow up on this GI loss of blood and continue physical therapy and occupation therapy and to continue her thyroid replacement. Mario Mcgrath MD
--- NOTE | 2017-02-19 19:58 | PN ---
DATE: SUBJECTIVE: The patient was followed up today. The patient presented to be anxious and have resting tremor in her right upper extremity. The patient does not have any acute changes with the presentation. The patient denied any thoughts of killing herself or others. The patient is aware of discharge plan to go to subacute rehab. The patient is willing to participate in treatment plan. The patient does not appear to be psychotic or agitated or aggressive. PHYSICAL EXAMINATION VIAL SIGNS: Stable. Temperature 97.1, pulse is 59, blood pressure 104/59, respirations 16, oxygen saturation is 95. MEDICATIONS: Medications reviewed. Colace, heparin, Synthroid, Ativan, this lead technical writer will decrease to 0.5 mg three times a day as needed for anxiety, Protonix and sodium chloride. LABORATORY DATA: Labs reviewed. Hemoglobin 8.4, hematocrit 24.7. Chemistry reviewed. TSH is elevated 102. The patient was seen by acid remover. Medications adjusted. MENTAL STATUS EXAM The patient presented to be alert, anxious, intermittent eye contact. Speech was underproductive, tremulous. Mood, he described as " I am not ready to woke yet." Affect was constricted. Thought process concrete. Thought content, the patient denied visual, auditory or tactile hallucinations. Denied paranoid ideation. The patient denied thoughts of harming herself or others. Denied intent or plan. Insight and judgment limited, but improving. Impulses are well controlled. IMPRESSION Rule out mood disorder due to general medical condition, rule out anxiety disorder due to general medical condition. The patient has severe hypothyroidism. PLAN Continue current management. Ativan 0.5 mg three times as needed for anxiety. The patient scheduled for subacute rehab transfer today. The patient is willing to go there and gaining her strength back. Discussed with the case management as well nursing staff. Thank you very much for us letting participate in care of your patient. This lead technical writer will sign off. The patient pose no threat to self. The patient does not present to be in any imminent danger to self or others, needs to be followed up with [facility]. Should they have any questions give me a call back. Elena Lemus MD [facility] # [id number]
--- NOTE | 2017-02-20 13:58 | PQF DECUBI ---
This form is a permanent part of the medical record Dr. Mcgrath, Clarification of your documentation is requested to better reflect the severity of illness and intensity of treatment of your patient. Indicators present: Please specify the stage of the decubitus ulcer of bilateral buttocks. [x] Documented diagnosis of decubitus/pressure ulcer noted bilateral buttocks Location in the medical record that reflects the above clinical findings: [] H&P Treatment Provided: PHYSICIAN'S RESPONSE Based on your medical judgment can you define the stage of the decubitus/ pressure ulcer as: Present On Admission [] Stage 1 Pressure Ulcer: Specify Location: [] Yes [] No Intact Skin with non-blanching erhythema (reddened area on skin) Painful or Itchy When compared to adjacent tissue may be firmer/softer or warmer/cooler [] Stage 2 Pressure Ulcer: Specify Location: []Yes []No Partial thickness loss of dermis Abrasion, blister or shallow open crater Red/pink wound bed without slough [] Stage 3 Pressure Ulcer: Specify Location: []Yes [] No Full thickness skin loss (bone, tendon, muscle are not exposed) Damage or necrosis into subcutaneous soft tissues Slough present but does not obscure the depth of tissue loss Undermining and/or tunneling [] Stage 4 Pressure Ulcer: Specify Location: []Yes [] No Full thickness skin loss with exposed bone, tendon or muscle Slough Undermining and/or tunneling Extend into muscle and/or supporting structure (e.g. fascia, tendon, or joint capsule) [] Unstageable: Specify Location: [] []Yes [] No In responding to this query, please exercise your independent professional judgment. The fact that a question is asked does not imply that any particular answer is desired or expected. Thank you for your clarification on this documentation. If you have any questions please call:[ ] * Thank you, [ ]SAM programming intern FELIPE
--- NOTE | 2017-02-23 06:14 | PQF DECUBI ---
This form is a permanent part of the medical record Dr. Mei, Clarification of your documentation is requested to better reflect the severity of illness and intensity of treatment of your patient. Indicators present: you noted in your H&P bilateral decubitus ulcer of the buttocks. Please specify below the stage. Thank you. [x] Documented diagnosis of decubitus/pressure ulcer Location in the medical record that reflects the above clinical findings: [] H&P Treatment Provided: PHYSICIAN'S RESPONSE Based on your medical judgment can you define the stage of the decubitus/ pressure ulcer as: Present On Admission [x] Stage 1 Pressure Ulcer: Specify Location: bilateral buttocks [x] Yes [] No Intact Skin with non-blanching erhythema (reddened area on skin) Painful or Itchy When compared to adjacent tissue may be firmer/softer or warmer/cooler [] Stage 2 Pressure Ulcer: Specify Location: []Yes []No Partial thickness loss of dermis Abrasion, blister or shallow open crater Red/pink wound bed without slough [] Stage 3 Pressure Ulcer: Specify Location: []Yes [] No Full thickness skin loss (bone, tendon, muscle are not exposed) Damage or necrosis into subcutaneous soft tissues Slough present but does not obscure the depth of tissue loss Undermining and/or tunneling [] Stage 4 Pressure Ulcer: Specify Location: []Yes [] No Full thickness skin loss with exposed bone, tendon or muscle Slough Undermining and/or tunneling Extend into muscle and/or supporting structure (e.g. fascia, tendon, or joint capsule) [] Unstageable: Specify Location: [] []Yes [] No In responding to this query, please exercise your independent professional judgment. The fact that a question is asked does not imply that any particular answer is desired or expected. Thank you for your clarification on this documentation. If you have any questions please call:[ ] * Thank you, [ ]CECY GAITANcoordinator of evaluation FELIPE
== END 2017-02-19 16:52 | DRG 644 ==
LOC: ED 09:22 → ERH 14:06 → 5RSO 15:59
PROVIDERS: ADMIT Internal Medicine; ATTEND Internal Medicine
DX: E06.3 Autoimmune thyroiditis (principal); N39.0 Urinary tract infection, site not specified; R64 Cachexia; Z68.1 Body mass index [BMI] 19.9 or less, adult; L89.311 Pressure ulcer of right buttock, stage 1; L89.321 Pressure ulcer of left buttock, stage 1; E86.0 Dehydration; F03.90 Unspecified dementia, unspecified severity, without behavioral disturbance, psychotic disturbance, mood disturbance, and anxiety; G25.0 Essential tremor; F41.1 Generalized anxiety disorder; F32.9 Major depressive disorder, single episode, unspecified; F22 Delusional disorders; K59.00 Constipation, unspecified